=== PATIENT | female | born 1930 | race Caucasian/White ===

== ENCOUNTER → 2017-04-12 | Outpatient (CLI) | payer MEDICARE, OTHER, MEDICAID ==
[~2017-04-12] MED LIST: ADVAIR 250-501 EACH INH; ALDACTONE25 MG PO; CLARITIN10 MG PO; COLACE100 MG PO; COUMADIN ** 9/62 MG PO; COUMADIN **IA1 MG PO; DITROPAN5 MG PO; DULCOLAX10 MG R; DUONEB INH; FLOMAX0.4 MG PO; HYDROCODON-ACE1 EACH PO; K-TAB ER10 MEQ PO; LACTINEX (FLORA1 TAB PO; LASIX40 MG PO; LEVOTHROID (S100 MCG PO; MAG-OX-400(241400 MG PO; MILK OF MA400 MG/5 M PO; MUCINEX600 MG PO; OXYGEN M-15 INH; PLAQUENIL200 MG PO; REQUIP0.25 MG PO; TENORMIN50 MG PO; TYLENOL EXTRA500 MG PO; TYLENOL325 MG PO; ULTRAM50 MG PO; VITAMIN D-32000 UNI1 PO; ZAROXOLYN2.5 MG PO; ZYLOPRIM100 MG PO
[2017-04-12 09:23] LABS: BASOPHIL # 0.1 K/uL (0.0-0.2); BASOPHIL % 0.8 %; HEMATOCRIT 31.9 % (30.0-46.0); HEMOGLOBIN 10.2 g/dL (10.0-15.0); IMMATURE GRANULOCYTE # 0.1 K/uL (0.0-0.3); LYMPHOCYTE # 1.3 K/uL (0.8-4.0); LYMPHOCYTE % 16.3 %; MONOCYTE # 0.7 K/uL (0.0-1.0); MONOCYTE % 9.5 %; MPV 11.9 fl (9.4-12.4); NEUTROPHIL # (ANC) 5.6 K/uL (1.8-7.8); NEUTROPHIL % 72.4 %; NRBC % 0 /100WBC (0-0.00); PLATELET COUNT 318 K/uL (150-450); RBC 3.19 M/uL (3.00-5.00); RDW-CV 15.9 % (11.9-14.6); WBC 7.7 K/uL (4.0-11.0)
[2017-04-12 09:27] LABS: INR - (THERAPEUTIC) 1.62 (0.92-1.07); PROTIME 17.1 SECONDS (9.8-11.4)
[2017-04-12 09:32] LABS: ANION GAP 12.7 (10.0-19.0); CREATININE 2.1 mg/dL (0.5-1.1); POTASSIUM 4.7 mMol/L (3.7-5.1)
== END ==
PROVIDERS: Internal Medicine
DX: I48.91 Unspecified atrial fibrillation (principal); D64.9 Anemia, unspecified; N18.9 Chronic kidney disease, unspecified

== ENCOUNTER 2017-04-13 17:11 | Inpatient (IN) | payer MEDICARE, OTHER, MEDICAID ==
[~2017-04-13] VITALS: Ht 152.4 cm; Wt 64.1 kg
--- NOTE | ~2017-04-13 | OR ---
PATIENT'S NAME: [facility]ISA [facility] AGE: 86 Y [address] ROOM: [address] [address] LOCATION: GPCU ADMIT DATE: 04/13/2017 OR/Procedure Report DISCHARGE DATE: FAMILY PHYSICIAN: YOJANA ORDOÑEZ MD ATTENDING PHYSICIAN: RACHELL MOTTA SURGEON: Jonathon Galvez MD WILDLIFE ENFORCEMENT MAJOR: DATE OF PROCEDURE: 04/17/2017 ANESTHESIA: General endotracheal anesthesia. PROCEDURE PERFORMED: Laparoscopic cholecystectomy. COMPLICATIONS: None. SPECIMENS: Gallbladder and contents FINDINGS: 1. Chronic calculous cholecystitis 2. Micronodular cirrhosis COUNTS: The sponge and needle counts at the end of the case were correct. DESCRIPTION OF PROCEDURE: After informed consent was obtained, the patient was taken to the operating room and intubated. Her anterior abdominal wall was sterilely prepped and draped. A surgical time-out was performed. Local anesthetic was infiltrated just below the umbilicus in the midline dermis. A stab incision was used to allow passage of a Veress needle. Veress needle entered into the peritoneum on the first pass. A pneumoperitoneum was created. An 11 mm port was passed through this stab incision. Adhesions of omentum to the anterior abdominal wall were noted. A 5 mm subxiphoid port and two 5 mm right subcostal ports were placed under camera visualization. There was no ascites. The liver had an appearance of micronodular cirrhosis with interspersed areas of fibrosis. Adhesions of omentum to a thickened gallbladder were identified. This was consistent with the diagnosis of chronic cholecystitis. The adhesions of omentum were divided with a combination of blunt dissection and Harmonic scalpel. The gallbladder was retracted superiorly and laterally. Dissection within the triangle of Calot revealed the cystic artery and cystic duct. A top-down dissection of the gallbladder from the gallbladder fossa was performed in this patient with cryptogenic cirrhosis. Minor bleeding from the gallbladder fossa was seen. The cystic artery was divided with the Harmonic scalpel. The gallbladder was freed from the gallbladder fossa and suspended only by the cystic duct. Endoloops x2 were used around the cystic duct. The gallbladder was divided at its neck and extracted through an EndoCatch bag via the 11 mm port. Irrigation of the right upper quadrant proceeded. There was no leakage of bile. There was no evidence of ongoing bleeding. Ports were removed under camera visualization. The fascia of the 11 mm umbilical port was closed with 0 Vicryl. 4-0 Monocryl and Dermabond were used for all skin incisions. The patient was extubated in the operating room and taken to the recovery room in stable condition. PATIENT'S NAME: [facility] AGE: 86 Y [address] ROOM: [place] [address] LOCATION: GPCU ADMIT DATE: 04/13/2017 OR/Procedure Report DISCHARGE DATE: FAMILY PHYSICIAN: YOJANA ORDOÑEZ MD ATTENDING PHYSICIAN: RACHELL MOTTA JONATHON GALVEZ MD CM/marely /[id number] d: 04/17/17 1359 t: 04/17/17 2211, OPERATIVE SUMMARY
--- NOTE | ~2017-04-13 | HP ---
PATIENT'S NAME: LUISA WRIGHT [facility] AGE: 86 Y [address] ROOM: [place] [address] LOCATION: GPCU ADMIT DATE: 04/13/2017 History & Physical DISCHARGE DATE: FAMILY PHYSICIAN: YOJANA ORDOÑEZ MD ATTENDING PHYSICIAN: RACHELL MOTTA DATE OF SERVICE: CHIEF COMPLAINT: Abdominal pain. HISTORY OF PRESENT ILLNESS: An 86-year-old lady with a past medical history of atrial fibrillation, on oral anticoagulation with Coumadin, hypothyroidism, COPD, and peripheral vascular disease who suffered a fall about 3 weeks ago, ground level, fracturing her right humerus, oblique complete fracture, treated conservatively with a cast by Dr. Arndt. She was at nursing facility, recovering well, until couple of days when she developed generalized pain, but more importantly she developed abdominal pain, which she described to me as crampy in nature, located in the right upper quadrant, it comes and goes, associated with decrease in appetite, cold episode, but no shaking or fever. Not associated with any constipation, diarrhea, burning on urination, nausea or vomiting. She on my encounter, denied any chest pain, but daughters did endorse that she was complaining of chest pain from the fall as well. She also endorsed having more cough production in recent days, but more or less no shortness of breath. Further inquiry did not reveal any leg swelling, any dizziness, any headache, any trouble swallowing, but did endorse having extreme thirst. REVIEW OF SYSTEMS: All other systems reviewed were negative except what is mentioned in the HPI. ALLERGIES: THE PATIENT IS ALLERGIC TO PENICILLIN, TYLENOL, WELL HYDROCODONE WELL TETANUS SHOT. PAST MEDICAL HISTORY: Paroxysmal atrial fibrillation, on home long-term anticoagulation, hypothyroidism, COPD, and peripheral vascular disease. MEDICATIONS: Being reconciled right now. SOCIAL HISTORY: Lifelong current smoker. PATIENT'S NAME: LUISA WRIGHT [facility] AGE: 86 Y [address] ROOM: [place] [address] LOCATION: GPCU ADMIT DATE: 04/13/2017 History & Physical DISCHARGE DATE: FAMILY PHYSICIAN: YOJANA ORDOÑEZ MD ATTENDING PHYSICIAN: KHALID,LOVETT A FAMILY HISTORY: Reviewed and was unrelated to the current events. PHYSICAL EXAMINATION: VITAL SIGNS: Blood pressure on presentation was 166/66, afebrile, 52, satting 95% on 1 L of oxygen, and respiratory rate 16. GENERAL: No acute distress. Alert and oriented x3. HEENT: Head: Atraumatic, normocephalic. Eyes: Positive pallor, positive icterus. Oropharynx: Very dry mucous membranes. CARDIOVASCULAR: Variable S1, normal S2, bradycardia. No murmurs, gallops, or rubs. LUNGS: Bilateral scattered crackles. No expiratory wheezes heard. ABDOMEN: Soft, tender in the right upper quadrant. No rebound tenderness or Chowdhury sign noted. Bowel sounds are present. EXTREMITIES: No clubbing or cyanosis, but extensive bruising from the recent fall noted. Right upper extremity is in the cast right now. MUSCULOSKELETAL: No muscle tenderness noted, but multiple pain all over the body reported. NEUROLOGIC: Cranial nerves 2 through 12 intact. No motor or sensory deficits. PSYCH: Normal affect, mood, and speech. ENDOCRINE: No thyromegaly or myxedema noted. SKIN: As mentioned above, multiple bruises extensive noted in the extremities, no blemishes. LABORATORY DATA: Lab work done today in the emergency department showed 2 set of troponins, which were negative. CBC was unremarkable. BMP was impressive for BUN of 75, creatinine of 2.2, sodium 136, potassium 4.0, chloride 97, bicarb 28, calcium 8.4, alkaline phosphatase was very impressive at 1305. Given undergoing the recent trauma, but ALT and AST are also elevated at 86 and 133 respectively. Bilirubin is elevated at 2.4, mag is 3.7, INR is 2.2. Urinalysis is suggestive of acute cystitis. Procalcitonin 0.62. CT scan of the abdomen, pelvis, and chest was done with the following findings. Acute oblique fracture of the right proximal humerus, extensive vascular calcification of the aorta, also imaging is suggestive of aspiration or presence of inspissated secretion on the right-side. Right lung dense consolidation at the right infrahilar region and both bases consistent with dense infiltrate and atelectasis. No free air or fluid identified in the abdomen. Right renal cyst there is a 3-cm cystic mass at the left-side of the pelvis, which could reflect mass of ovarian origin. It also showed cholelithiasis, but there was no comments on the CBD or CBD dilatation. No comments on the pancreas are also found in the CT report. PATIENT'S NAME: LUISA WRIGHT [facility] AGE: 86 Y [address] ROOM: [address] [place], [place] [address] [facility] ADMIT DATE: 04/13/2017 History & Physical DISCHARGE DATE: FAMILY PHYSICIAN: YOJANA ORDOÑEZ MD ATTENDING PHYSICIAN: RACHELL MOTTA ASSESSMENT: 1. Biliary obstruction, likely choledocholithiasis. 2. Atrial fibrillation with slow ventricular rates on long-term anticoagulation. 3. Elevated liver enzymes. 4. Acute kidney insufficiency on chronic kidney disease stage 3, ovarian mass/cyst. 5. Chronic obstructive pulmonary disease. 6. Pneumonia, likely healthcare-associated. 7. Recent fall. 8. Acute cystitis. PLAN: We are going to admit this lady and start her on intravenous fluids given that she is very dry on the physical exam and the kidney function also reflects the same. Continue her antibiotics for biliary obstruction as well as pneumonia, start her on meropenem and Levaquin, I will hold vancomycin at this point, we will get a sputum culture, blood culture, as well as urine Legionella or streptococcal antigen. We will monitor. We are going to get ultrasonography of the right upper quadrant as it is more sensitive to pickup any CBD dilatation or stones. GI consultation will be obtained in the morning until then pain control will be provided. DuoNeb treatment for her COPD. Hold anticoagulation at this point. SCDs. N.p.o. midnight for possible GI procedure in the morning. The patient is DNR/DNI. I spent 1 hour in providing direct care to this patient including history and physical, explaining to the current nature of the disease processes, management, and prognosis. MD MARIAJOSE ROJAS/marely /[id number] D: T: HISTORY & PHYSICAL
--- NOTE | ~2017-04-13 | ER ---
PATIENT'S NAME: LUISA WRIGHT [facility] AGE: 86 Y [address] ROOM: [address] [place], [place] [address] LOCATION: GPCU ADMIT DATE: 04/13/2017 ER/Outpatient Report DISCHARGE DATE: FAMILY PHYSICIAN: YOJANA ORDOÑEZ MD ATTENDING PHYSICIAN: RACHELL MOTTA HISTORY OF PRESENT ILLNESS: This patient is an 86-year-old female, who comes in with abdominal pain, chest pain over the past 3 days. The patient had a ground level fall about a week ago with fractured right humerus and multiple lacerations, contusions, soft tissue injuries. She has been in [facility] recuperating from her fall over the past week. The pain has been there for the past 3 days. The patient initially saw Dr. Tovar on admission here to the emergency department. See Dr. Tovar's dictation in regard to the chief complaint, history of present illness, past medical history, physical exam, and laboratory studies. Dr. Tovar asked to transfer the patient's care over to me at shift change and asked me to follow up with the patient's CT scan results of the thoracic spine, lumbosacral spine, chest, abdomen, and pelvis. CT scans were done without contrast because of her chronic kidney disease. She had CT scan of the facial bones, head and C-spine that were all negative on 03/25. These were not redone. CT scan of the thoracic spine showed an old compression fracture T11 and some kyphosis along with degenerative changes. CT scan of the lumbosacral spine showed degenerative changes, spinal stenosis at L4-L5. No acute fractures. CT scan of the chest without contrast showed bilateral lower lobe consolidation and bilateral upper lobe consolidation consistent with aspiration pneumonia. CT scan of the abdomen and pelvis showed diffuse vascular calcifications. No free air or free fluid. Did have some gallstones, right kidney cyst 3 cm, left pelvic cyst. All CT scans read by Radiology. See dictated transcribed report. The patient is known to have a right humeral fracture from a previous fall about a week ago. We did draw two blood cultures. Her urine came back positive with 20 to 50 wbc's, 2 to 5 rbc's, 2 to 5 epithelial cells, many bacteria, 1+ amorphous material, few white blood cell clumps, positive nitrites on dipstick. The patient's EKG showed no acute ST elevation, ischemic change, or arrhythmia. Her CPK and cardiac enzymes were normal. Lactate was normal at 1.2. Procalcitonin was elevated at 0.62. CMS was normal except for a slight low calcium of 8.4, elevated BUN of 75, elevated creatinine of 2.2, and low GFR of 20. Liver enzymes were elevated with a total bilirubin at 2.4, alkaline phosphatase of 1305, AST 133, and ALT of 86. ProBNP was elevated 2380. White count was normal at 8500, 78 segs, 10 lymphs, 9 monos, and 1 baso. Hemoglobin was 10.3 with hematocrit 33.0 and platelet count is 273,000. EMERGENCY DEPARTMENT COURSE: I did give the patient 1 L normal saline and put it at 100 mL an hour. She is on oxygen per nasal cannula 1 to 2 L/minute. She is not having any altered PATIENT'S NAME: LUISA WRIGHT [facility] AGE: 86 Y [address] ROOM: [address] [address] [facility] AD[facility] DATE: 04/13/2017 ER/Outpatient Report DISCHARGE DATE: FAMILY PHYSICIAN: YOJANA ORDOÑEZ MD ATTENDING PHYSICIAN: RACHELL MOTTA mental status. She does have a new infection involving her urine and her pneumonia. She is not tachycardic or tachypneic. Does not have an elevated white count or below normal white count. She is not hyper or hypothermic. Her vital signs have been stable. Awaiting blood cultures and urine cultures. We will start her on IV Levaquin 750 mg here in the emergency department. IMPRESSION: 1. Aspiration pneumonia with cough and chest pain. 2. Urinary tract infection with abdominal pain, nausea, and dry heaves. 3. Elevated liver enzymes, etiology uncertain. She does have known gallstones. 4. Chronic kidney disease with elevated BUN and creatinine and low GFR. 5. Hypothyroidism. 6. Dyslipidemia. 7. Tobacco abuse. 8. Chronic obstructive pulmonary disease. 9. Hypertension. 10. Degenerative joint disease with degenerative osteoarthritis, status post total hip arthroplasty. PLAN: Discussed the patient with Dr. Anton. We will admit the patient to PCU telemetry. Did start the patient on IV normal saline, fluids, and IV Levaquin. She will be admitted for further evaluation and treatment per hospitalist. Discuss ensued with the family and the patient regarding my findings and recommendations, they understand. MD TOÑO ALEGRIA/esperanzal /[id number] d: 04/13/172 t: 04/14/17 1813, OUTPATIENT REPORT
--- NOTE | ~2017-04-13 | DS ---
PATIENT'S NAME: LUISA WRIGHT [facility] AGE: 86 Y [address] ROOM: [id number] [place], [place] [address] [place]ATION[place] [facility] [place] AD[place] DATE: 04/13/2017 Discharge Summary DISCHARGE DATE: 04/21/2017 FAMILY PHYSICIAN: Chandler Green MD ATTENDING PHYSICIAN: Tess Plummer PRINCIPAL DIAGNOSES: 1. Choledocholithiasis with chronic cholecystitis. 2. Healthcare-acquired pneumonia, MSSA. 3. Urinary tract infection, Escherichia coli and Pseudomonas. 4. Tumjh-eq-tffbmmv respiratory failure with underlying chronic obstructive pulmonary disease. 5. Urinary retention with Rosas catheter placement. 6. Evztd-fm-csycdhp kidney disease, stage 3. 7. Paroxysmal atrial fibrillation, on long-term anticoagulation, Coumadin. 8. Chronic diastolic congestive heart failure. 9. Essential hypertension. 10. Rodbavji-ro-euiyhr protein-calorie malnutrition. 11. Pwexreli-ve-gfnyug deconditioning. 12. Rheumatoid arthritis. 13. History of recent right humerus fracture. 14. Chronic tobaccoism, smoker. HOSPITAL COURSE: Please reference any of the admitting data to the history and physical as dictated by Dr. Plummer. Briefly, an 86-year-old female, who presented to the hospital with complaints of abdominal pain. Evaluation found a CT scan with concerns of biliary obstruction. She was further admitted for evaluation. She did have elevated liver functions with a total bilirubin of 2.4, alkaline phosphatase of 1305, ALT of 86, and AST 133. She also presented with a bump in her creatinine of 2.8 and BUN of 76. She also had a mild elevation in her white count of 13,000. Her urinalysis was positive for cystitis. She was started on meropenem and Levaquin. A Gastroenterology consultation was obtained. She was given supportive cares with IV fluids, antiemetics, and pain medicine. Further investigation by right upper quadrant ultrasound showed suspected acute cholecystitis with a dilated common bile duct with no definite intraductal filling defect. As we allowed the Coumadin to be reversed, we did have to utilize FFP. She underwent an ERCP where a stent was placed and sludge and stones were swept. A Surgical consultation was obtained while INR was reversed. She underwent a laparoscopic cholecystectomy then on 04/17. Also upon her initial presentation, she did have a mild increase in her oxygen demands from her baseline 1 L of oxygen to 3 to 4 L of oxygen. It was noted PATIENT'S NAME: LUISA WRIGHT [facility] AGE: 86 Y [address] ROOM: [address] [place], [place] [address] LOCATION: [facility] [place] DATE: 04/13/2017 Discharge Summary DISCHARGE DATE: 04/21/2017 FAMILY PHYSICIAN: Chandler Green MD ATTENDING PHYSICIAN: Tess Plummer that she did have a positive patchy area of concern for infiltrate on CT of her chest. Sputum culture did show MSSA, so antibiotics were transitioned appropriately. Her urine culture grew out gram-negative rods, eventually grew out E. coli and Pseudomonas, and eventually antibiotics were narrowed from vancomycin and meropenem down to oral Levaquin renally dosed for recommended 14 total days. With aggressive pulmonary toileting and treatment of her pneumonia and mucolytic, she did make progress back down to her baseline 1 L oxygen requirement. She was mobilizing with physical and occupational therapy. She was recovering well from her laparoscopic cholecystectomy and trending down towards normal function. Creatinine had improved back to her baseline down to 1.2. The patient had a recent fall with a right humerus fracture. We maintained her orthopedic restrictions and brace. Therapies were evaluating and treating the patient while hospitalized. Post-laparoscopic cholecystectomy, we were able to resume her Coumadin, and she was placed on DVT prophylaxis until her INR was greater than 2, which was on the day of discharge. She had no bleeding complications noted. Her diuretics were held in lieu of the acute kidney injury. She was hydrated appropriately. On the day of discharge, she was returned to her previous diuretic dosing. Further cardiac evaluation as an outpatient is warranted. Remaining of the patient's chronic conditions were maintained or monitored during her stay. By the day of discharge, she was felt stable and in good condition to return to [facility] for further recovery. PERTINENT LABORATORY FINDINGS: As described above with most recent being a CBC on 04/20 showed a white blood cell count of 10.5, hemoglobin of 8.2, hematocrit of 25.2, and a platelet count of 257. A chemistry panel most recently on 04/20 showed a glucose of 62; a BUN of 41; a creatinine of 1.2, down from 2.8; a sodium of 131; a potassium of 3.8; a chloride of 95; a CO2 of 29; calcium 8.2, and anion gap 10.8. Liver functions showed initial AST of 133; ALT of 86; alkaline phosphatase of 1305; and a total bilirubin of 2.4, this trended to 4.5 and post-laparoscopic cholecystectomy was 1.7. INR on the day of discharge was 2.86. Urinalysis showed yellow 1+ turbid urine with specific gravity 1.010 with 500 PATIENT'S NAME: LUISA WRIGHT [facility] AGE: 86 Y [address] ROOM: [facility] [place] [address] LOCATION: [facility] [place] ADMIT DATE: 04/13/2017 Discharge Summary DISCHARGE DATE: 04/21/2017 FAMILY PHYSICIAN: Chandler Green MD ATTENDING PHYSICIAN: Tess Plummer leukocytes and positive nitrites, many bacteria, and microscopic blood and leukocytes. A culture of that urine showed Pseudomonas and E. coli. Procalcitonin upon arrival was 0.62. Lipase was negative at 85. MICROBIOLOGY DATA: Showed a sputum culture with Staphylococcus aureus, methicillin sensitive. Blood cultures obtained were negative. RADIOLOGIC IMAGING: Initial imaging on April 13 showed a chest x-ray with the known proximal right humerus fracture with multiple areas of patchy parenchymal opacity in both lungs, greater than the right compared to the left with low lung volumes. So, a CT of the chest, abdomen, and pelvis was obtained showing impression of acute oblique fracture of the right proximal humerus, which is known. Extensive vascular calcifications with an ectatic aorta. There was intermediate attenuation material in the lobar, segmental, and subsegmental bronchi at the lower lobes, concern for secretions. There was also an area of dense lung consolidation in the right infrahilar area in both bases consistent with dense infiltrate and atelectasis. There were also patchy areas of parenchymal opacity on the anterior aspect of the right upper lobe and left lower lobe reflecting probable atelectasis or infiltrate. There was cholelithiasis noted and no findings of bowel obstruction. She also had a CT of the lumbar spine, which showed no acute bone fractures. CT scan of her thoracic spine showed mild central compression deformity at the superior endplate of T11, probable chronic. No other acute changes. Right upper quadrant ultrasound showed suspected acute cholecystitis with dilated common bile duct, but no definite intraductal filling defect. There was also known right renal cyst with mildly atrophic appearing right kidney. DISCHARGE MEDICATIONS: 1. Tylenol Extra Strength 500 mg p.o. 4 times daily. 2. Allopurinol 200 mg p.o. every day. 3. Atenolol 50 mg p.o. twice daily. 4. Colace 100 mg p.o. twice daily. 5. Coumadin 2 mg p.o. 3 times a week on Tuesday, Tuesday, and Tuesday. 6. Coumadin 1 mg p.o. 4 times a week on Tuesday, Tuesday, , and Tuesday. Primary care provider to titrate to goal INR of 2.0 to 3.0. 7. Humibid or Mucinex 1200 mg p.o. twice daily for 7 days. 8. Plaquenil 200 mg p.o. twice daily. 9. Lactobacillus 4 tablets p.o. 4 times daily. 10. Levaquin 750 mg p.o. every 48 hours for 4 more doses. PATIENT'S NAME: LUISA WRIGHT [facility] AGE: 86 Y [address] ROOM: [place] [address] LOCATION: [facility] [place] ADMIT DATE: 04/13/2017 Discharge Summary DISCHARGE DATE: 04/21/2017 FAMILY PHYSICIAN: Chandler Green MD ATTENDING PHYSICIAN: Tess Plummer 11. Levothyroxine 100 mcg p.o. every day before breakfast. 12. Claritin 10 mg p.o. every day before breakfast. 13. Magnesium oxide 400 mg p.o. twice daily. 14. Metolazone 2.5 mg p.o. every day. 15. Lasix 40 mg p.o. twice daily. 16. Aldactone 12.5 mg p.o. daily. 17. Flomax 0.4 mg p.o. every evening at 1900 hours. 18. Ipratropium and albuterol nebulizer treatment 1 inhalation every 8 hours for another 14 days. 19. Advair 250/50 one puff inhalation twice daily. 20. Dulcolax 10 mg per rectum as needed for constipation. 21. Milk of magnesia 30 mL p.o. daily as needed for constipation. 22. Potassium chloride 20 mEq p.o. 4 times daily. 23. Ultram, changed to 50 to 100 mg p.o. every 12 hours as needed. 24. Requip 0.25 mg p.o. every night at bedtime. 25. Oxybutynin 5 mg p.o. every day. 26. Vitamin D3, 2000 units p.o. every day. 27. Requip 0.25 mg p.o. 3 times daily as needed for restless legs. 28. Albuterol nebulizer every 2 hours as needed for shortness of breath or wheezing. DISCHARGE INSTRUCTIONS: The patient will be discharged to [place] by transport van. Diet will be regular soft diet, to include a calorie count by Dietary to ensure the patient is meeting sufficient dietary needs. House supplement as needed. Activity as tolerated and right humerus fracture restrictions as per orthopedist with continuation of the right upper extremity brace and sling. She will require multiple followups to include a followup with her primary care provider, Dr. Green in 1 week, with continued followup of labs of PT/INR, most recent on 04/22, to be faxed to his office and to manage Coumadin to goal INR of 2.0 to 3.0. A CBC and BMP are recommended at followup date with Dr. Green in 1 week. She will also require a followup with Dr. Gaviria with stent removal in 3 weeks. Orders to follow and to be scheduled an endoscopy with n.p.o. the night prior to. Coumadin to be held as per primary care provider 5 days prior to the ERCP and a PT/INR to be drawn on the morning of the ERCP. She will also require followup with Dr. Ferrer in 1 to 2 weeks for postop laparoscopic cholecystectomy evaluation. Laparoscopic cholecystectomy instructions were sent with the patient for caring and monitoring of the PATIENT'S NAME: LUISA WRIGHT [facility] AGE: 86 Y [address] ROOM: [address] [place] [id number] LOCATION: [facility] [place] ADMIT DATE: 04/13/2017 Discharge Summary DISCHARGE DATE: 04/21/2017 FAMILY PHYSICIAN: Chandler Green MD ATTENDING PHYSICIAN: Tess Plummer. She will also require followup with Urology in 4 weeks. The patient did have a void trial without any success. A Urology consultation with Dr. Gasca ensued, who evaluated the patient to require the Rosas catheter. We will leave it in place for current time and they may change the catheter every month per their policy. We do recommend a followup in 4 weeks to further evaluate, need for long-term catheter and possible urodynamic studies. The patient is planning to see [facility] provider regarding her humerus fracture, currently nonoperative stay with a sling and brace management, physical therapy and occupational therapy to continue. This is as per Dr. Green. The patient should warrant a Cardiology followup, and when I spoke to Dr. Green, he was planning on having Dr. Soto evaluate the patient. The patient was on a heavy dose of diuretics, most recently cut back, and was also in acute kidney injury when she came. This will need to be observed closely. The patient may warrant further investigation of her cardiac history. Her rehab potential is fair and discharge potential is fair. The above line information was discussed with the patient. I did discuss her hospital course with Dr. Green. Total time arranging discharge planning and coordination was greater than 35 minutes. Thank you for allowing us to participate in the care of this patient while at [facility]. WEST MARTIN APRN, APRN FOR MD ESTEPHANIE HOPPER/marely /[id number] CC: MD Chandler Pisano MD Brady J O'Hare, MD d: 04/22/17 0523 t: 04/23/17 1726, DISCHARGE SUMMARY
--- NOTE | ~2017-04-13 | CON ---
PATIENT'S NAME: LUISA WRIGHT [facility] AGE: 86 Y [address] ROOM: [address] [place], [place] [address] LOCATION: [facility]PCU ADMIT DATE: 04/13/2017 Consultation DISCHARGE DATE: FAMILY PHYSICIAN: YOJANA ORDOÑEZ MD ATTENDING PHYSICIAN: RACHELL MOTTA DATE OF CONSULTATION: 04/14/2017 REFERRING PHYSICIAN: EMILIE HARRELL MD REASON FOR CONSULTATION: Elevated liver function tests and abdominal pain. HISTORY OF PRESENT ILLNESS: This is a very pleasant 86-year-old female with a past medical history significant for atrial fibrillation, on Coumadin, hypothyroidism, COPD, and peripheral vascular disease. The patient suffered a fall approximately 3 weeks ago resulting in a fracture of her right humerus with oblique complete fracture treated conservatively with a cast. The patient has currently been residing at a snf and recovering well until a few days ago when she developed generalized abdominal pain as well as right upper quadrant pain with radiation into the back. She did have associated decrease in appetite as well as a cold episode, but denied any steven fever or shaking chills. The patient denies any problems with her bowels or change in her bowel habits. She also denies any chest pain, chest pressure, or shortness of breath. Her family does endorse a cough production in the past few days without any shortness of breath. On evaluation at [facility], the patient did undergo a CT abdomen and pelvis showing cholelithiasis as well as pneumonia. No mention was made of the patient common bile duct and/or possible choledocholithiasis. On examination of laboratory, the patient was found to have elevated liver function tests with an AST of 133, now 392, ALT was 86, now 176, alk phos was 1305, now 1327, with a total bilirubin at 2.4, now 2.9. The patient was seen and examined. She states that her abdominal pain is slightly better. She continues to have some intermittent back pain. Denies any fever or shaking chills. The patient denies any acute chest pain, chest pressure, shortness of breath, fever, or chills at this time. PAST MEDICAL HISTORY: Atrial fibrillation, on long-term anticoagulation being Coumadin, INR this morning was 2.6, hypothyroidism, COPD, and peripheral vascular disease. PAST SOCIAL HISTORY: Lifelong current smoker. Denies any alcohol or tobacco issues. FAMILY HISTORY: PATIENT'S NAME: LUISA WRIGHT [facility] AGE: 86 Y [address] ROOM: [address] [place], [place] [address] LOCATION: GPCU ADMIT DATE: 04/13/2017 Consultation DISCHARGE DATE: FAMILY PHYSICIAN: YOJANA ORDOÑEZ MD ATTENDING PHYSICIAN: RACHELL MOTTA The patient denies any known gastrointestinal diseases to her knowledge. ALLERGIES: PENICILLINS, CODEINE, TYLENOL, IBUPROFEN, NAPROXEN, TETANUS, CARDIZEM, AND PENICILLIN. CURRENT MEDICATIONS: Please refer to the medication administration record. REVIEW OF SYSTEMS: All point review of systems was completed. All were negative except for those identified in the history of present illness. PHYSICAL EXAMINATION: GENERAL: A very pleasant 86-year-old female, lying in bed, who appears to be in no acute distress. VITAL SIGNS: Temperature 97.5, pulse of 86, respirations of 24, blood pressure 144/62, and oxygen saturations 97% on 1 L nasal cannula. SKIN: [place], warm, dry. No jaundice. HEENT: Head is normocephalic and atraumatic. Pupils equal, round, and reactive to light. Sclerae are clear. Nonicteric. Oral mucosa is pink and moist. No thyromegaly. NECK: Soft and supple. CARDIOVASCULAR: Regularly irregular. RESPIRATIONS: Even and nonlabored. LUNGS: Clear to auscultation. ABDOMEN: Soft, round, mildly tender with deep palpation to the right upper quadrant. No rebound, rigidity, or guarding noted. Bowel sounds are positive. MUSCULOSKELETAL: No muscle weakness or atrophy noted. Right humerus fracture currently casted. EXTREMITIES: No edema. NEUROLOGIC: Grossly nonfocal. LABS AND DIAGNOSTICS: Lactate on admission was 1.2. White blood cell count 7.1, hemoglobin 9.1, hematocrit of 28.8, MCV of 99.7, and platelets of 255. Chemistry panel includes a glucose of 79, BUN of 69, and creatinine of 2.0. Sodium 137, potassium 3.4, chloride of 99, CO2 of 31, albumin of 2.0, AST 133, now 392, ALT was 86, now 176, alk phos was 1305, now 1327, total bilirubin at 2.4, now 2.9. Pro-time 28.2. INR is 2.66. Lipase 85. GGT was elevated at 456. CT abdomen and pelvis and chest was completed on admission. This showed acute oblique fracture of the proximal right humerus. Extensive vascular calcifications with ectatic aorta, intermediate attention material in the lobar, segmental, and subsegmental bronchi of the lower lobes, appearance PATIENT'S NAME: LUISA WRIGHT [facility] AGE: 86 Y [address] ROOM: [id number] [place] [id number] LOCATION: GPCU ADMIT DATE: 04/13/2017 Consultation DISCHARGE DATE: FAMILY PHYSICIAN: YOJANA ORDOÑEZ MD ATTENDING PHYSICIAN: RACHELL MOTTA A could reflect aspiration or pressure of inspissated secretions, areas of dense lung consolidation at the right infrahilar area in both bases, consistent with dense infiltrate and atelectasis. Patchy areas of parenchymal opacity in the anterior aspect of the right lower lobe and left upper lobe likely reflecting contusion, atelectasis versus infiltrates, no free air or free fluid identified at the abdomen or pelvis. Cholelithiasis, right renal cyst, no finding of bowel obstruction. A 3-mm cystic mass of the left-side of the pelvis which could reflect mass of ovarian origin. No mention was made of common bile duct or choledocholithiasis. Current abdominal ultrasound is pending at this time. ASSESSMENT AND PLAN: Again this is a very pleasant 86-year-old female with past medical history of atrial fibrillation, on long-term anticoagulation being Coumadin, chronic obstructive pulmonary disease, and peripheral vascular disease. The patient recently suffered a fall approximately 3 weeks ago resulting in a right humerus oblique fracture that cast has been placed. Over the past few days, the patient developed increasing abdominal pain in the right upper quadrant that she describes as cramping in nature with some radiation to the back. On admission, she was found to have abnormal liver function tests with elevated total bilirubin at 2.9 at this time. At this point, we will wait for abdominal ultrasound to be completed for further evaluation of the patient's common bile duct ruling out choledocholithiasis or dilation. The patient currently is on Levaquin and meropenem as this should be continued. The patient also was found to have pneumonia likely healthcare-associated as this is being managed per our hospitalist. If abdominal ultrasound is positive for choledocholithiasis, the patient likely will need to go undergo an ERCP after correction of the patient's INR as the patient's INR this morning was 2.66. This is discussed and reviewed with the patient. As long as the patient remains asymptomatic for cholangitis, we will await for the abdominal ultrasound as well as correction of INR. Thank you for this consult. MONICA FARFAN APRN FOR MD SEBASTIAN MATHEWS/modl /[id number] d: 04/14/17850 t: 04/18/17 1908, CONSULTATION REPORT
--- NOTE | ~2017-04-13 | CON ---
PATIENT'S NAME: LUISA WRIGHT [facility] AGE: 86 Y [address] ROOM: [place] [address] LOCATION: GPCU ADMIT DATE: 04/13/2017 Consultation DISCHARGE DATE: FAMILY PHYSICIAN: YOJANA ORDOÑEZ MD ATTENDING PHYSICIAN: RACHELL MOTTA DATE OF CONSULTATION: 04/16/2017 REFERRING PHYSICIAN: EMILIE HARRELL MD INPATIENT CONSULTATION NOTE REASON FOR CONSULTATION: The consultation is for a laparoscopic cholecystectomy. CHIEF COMPLAINT: Abdominal pain x1 week. HISTORY OF PRESENT ILLNESS: In brief, this is an 86-year-old female, who was admitted to the hospital two days ago with a 1-week history of intermittent right upper quadrant pain without specific association to meals. Pain is crampy in nature. She denied at that time acholic stools or jaundice. Of note, in her history, she sustained a fall while on Coumadin for her atrial fibrillation approximately three weeks prio, at which time she sustained a right humerus fracture which was treated nonoperatively. PAST MEDICAL HISTORY: Significant for: 1. Atrial fibrillation, on Coumadin. 2. COPD. 3. Peripheral vascular disease. 4. Hypothyroidism. PAST SURGICAL HISTORY: Includes: 1. Open appendectomy. 2. x5. 3. Multiple bilateral hip surgeries. MEDICATIONS: Reviewed. Of note, patient is on antibiotics for suspected UTI on admission. ALLERGIES: HER ALLERGIES ARE MULTIPLE AND INCLUDE PENICILLIN, TYLENOL, HYDROCODONE, AND THE TETANUS SHOT. PATIENT'S NAME: LUISA WRIGHT [facility] AGE: 86 Y [address] ROOM: [place] [address] LOCATION: GPCU ADMIT DATE: 04/13/2017 Consultation DISCHARGE DATE: FAMILY PHYSICIAN: YOJANA ORDOÑEZ MD ATTENDING PHYSICIAN: RACHELL MOTTA SOCIAL HISTORY: Positive for tobacco use. PHYSICAL EXAMINATION: VITAL SIGNS: She is afebrile with normal vital signs. GENERAL: She is surprisingly vibrant and alert. HEENT: She is anicteric. Oropharynx is normal. NECK: Supple. CARDIAC: Normal. PULMONARY: Normal. ABDOMEN: Mildly protuberant. There is minimal tenderness in the right upper quadrant to deep palpation. There are no palpable masses. There is no organomegaly. There is no jaundice. She has a well-healed Pfannenstiel and infraumbilical midline incisions consistent with her surgical history. EXTREMITIES: Her right arm is in a sling. SKIN: She has bruising and ecchymoses to the bilateral arms and face. LABORATORY DATA AND IMAGING STUDIES: On presentation to the hospital on the 12 of April, her white count was normal at 7.7, her hemoglobin was 10.2, and her platelet count was normal. Her white count has remained normal this admission most recently at 5.6. Her basic metabolic panel reveals a creatinine of 2.1 on admission, dropping to 1.6 this morning. She does have a baseline from 04 April that was 1.4, consistent with her diagnosis of mild chronic renal insufficiency. Her liver function tests revealed an AST and ALT of 133 and 86 on admission, and currently 324 and 183 as of yesterday. Her alkaline phosphatase has been in the 1300 to 1400 range. Her total bilirubin was 2.4 on admission, rising to 4.5, yesterday morning prior to her ERCP. Her INR on admission was 1.6 and her INR this morning with Coumadin held was 1.08. Her urinalysis on admission showed many bacteria, and she was nitrite positive and leukocytes positive. A right upper quadrant ultrasound showed a positive sonographic Chowdhury sign with a thickened gallbladder wall without pericholecystic fluid. Positive gallstones. Her common bile duct at that time was measured to be 1.4 cm. An ERCP was performed yesterday afternoon with extraction of multiple small stones, and sphincterotomy was performed. Stent placement followed. IMPRESSION AND PLAN: 1. Choledocholithiasis. 2. Urinary tract infection. 3. Paroxysmal atrial fibrillation with chronic anticoagulation. 4. Chronic renal insufficiency. I discussed the diagnoses and pathophysiology with the patient in layman's terms and discussed that this source of her pain in the right upper quadrant was most likely secondary to these stones that originated in the gallbladder PATIENT'S NAME: LUISA WRIGHT [facility] AGE: 86 Y [address] ROOM: [id number] [place], [place] [address] LOCATION: GPCU ADMIT DATE: 04/13/2017 Consultation DISCHARGE DATE: FAMILY PHYSICIAN: YOJANA ORDOÑEZ MD ATTENDING PHYSICIAN: RACHELL MOTTA and blocked her bile duct. I discussed some of the risks and benefits of surgery and nonoperative management. The patient understands that given her age and comorbidities, she is at higher risk of perioperative complications to include but not limited to, deep venous thrombosis, stroke, and . The patient understands the risks, benefits, indications, and alternatives as described and agrees to proceed with a laparoscopic cholecystectomy. I will arrange the timing of this procedure. CARLOS LOZANO MD CM/marely /[id number] d: 04/16/[id number] t: 04/17/17 0840, CONSULTATION REPORT
--- NOTE | ~2017-04-13 | ER ---
PATIENT'S NAME: LUISA WRIGHT [facility] AGE: 86 Y [address] ROOM: [place] [address] LOCATION: GPCU ADMIT DATE: 04/13/2017 ER/Outpatient Report DISCHARGE DATE: FAMILY PHYSICIAN: YOJANA ORDOÑEZ MD ATTENDING PHYSICIAN: RACHELL MOTTA Time of Arrival: 1711 hours Time of Evaluation: 1713 hours CHIEF COMPLAINT: Back pain. HISTORY OF PRESENT ILLNESS: The patient is an 86-year-old female, who presents to the emergency department today with a chief complaint of back pain. She reports this started 7 days prior to arrival. The patient does have a history of a fall about 3 weeks ago. She is recovering from a fracture of her right humerus at the nursing facility and these symptoms are progressively worsening over the past couple of days. She reports the pain is in right upper quadrant, it comes and goes. It is a sharp type pain. It is mild in severity. The patient does report some chest pain as well occasionally as well as some shortness of breath. Denies any diarrhea or constipation. PAST MEDICAL HISTORY: Paroxysmal atrial fibrillation, on Coumadin; hypothyroidism; COPD; peripheral vascular disease. PAST SURGICAL HISTORY: Carotid, ORIF, x5, hysterectomy, appendectomy. SOCIAL HISTORY: The patient smokes a pack per day for 54 years. Drinks alcohol rarely. Denies any illicit drug use. ALLERGIES: TO PENICILLIN, TYLENOL, HYDROCODONE, TETANUS. MEDICATIONS: Please see list. PRIMARY CARE DOCTOR: Dr. Ordoñez. REVIEW OF SYSTEMS: All systems are reviewed by myself and are negative with the exception of PATIENT'S NAME: LUISA WRIGHT [facility] AGE: 86 Y [address] ROOM: [place] [address] LOCATION: GPCU ADMIT DATE: 04/13/2017 ER/Outpatient Report DISCHARGE DATE: FAMILY PHYSICIAN: YOJANA ORDOÑEZ MD ATTENDING PHYSICIAN: RACHELL MOTTA those discussed in HPI and past medical history. PHYSICAL EXAMINATION: VITAL SIGNS: Weight 58.2 kg, blood pressure 166/63, pulse 54, respiratory rate 17, temperature 98.2, oxygen saturation 91% on 1 L nasal cannula. GENERAL: The patient is an 86-year-old female, who appears stated age, in no acute distress. HEENT: Head normocephalic. Does have evidence of trauma around the face with multiple areas of bruising. Pupils are equal, round, and reactive to light. NECK: Supple. There is no nuchal rigidity. No step-offs or deformities. CARDIOVASCULAR: Bradycardic. LUNGS: Clear to auscultation bilaterally. ABDOMEN: Soft. Right upper quadrant tenderness to palpation. There is no rebound, rigidity, or guarding. Positive bowel sounds. MUSCULOSKELETAL: The patient moves all 4 extremities. SKIN: Warm and dry. There are no rashes or lesions noted. LABORATORY DATA AND X-RAYS: Urinalysis shows 500 leukocyte esterase, positive nitrites, 15 protein, 25 blood, 20-50 wbc's, many bacteria, few WBC clumps, lactate normal. Old records from [facility] are reviewed. 03/25, CT scan of the head is negative, CT scan of the C-spine is negative, CT scan of the face is negative. Further laboratory analysis and imaging are pending. Please see Dr. Dominguez's dictation. IMPRESSION: 1. Acute right upper quadrant abdominal pain. 2. Acute complicated urinary tract infection. 3. Please see Dr. Dominguez's dictation. EMERGENCY DEPARTMENT COURSE: The patient was brought back to the examination room. Seen and evaluated by myself. IV is established. Laboratory analysis and imaging are obtained as described above. I have discussed the case with Dr. Dominguez at shift change. He will follow up on laboratory analysis and disposition per the results of the testing. Please see his dictation. DISPOSITION: The patient is dispositioned per Dr. Dominguez. INOCENCIO CONNOR DO PATIENT'S NAME: LUISA WRIGHT [facility] AGE: 86 Y [address] ROOM: [id number] [place] [id number] LOCATION: GPCU ADMIT DATE: 04/13/2017 ER/Outpatient Report DISCHARGE DATE: FAMILY PHYSICIAN: YOJANA ORDOÑEZ MD ATTENDING PHYSICIAN: RACHELL MOTTA/marely /[id number] d: 04/14/17708 t: 04/14/17812, OUTPATIENT REPORT
[2017-04-13 17:38] LABS: BILIRUBIN URINE NEGATIVE (NEGATIVE); BLOOD URINE 25 /UL (NEGATIVE); COLOR URINE YELLOW (YELLOW); GLUCOSE URINE NEGATIVE (NEGATIVE); KETONE URINE NEGATIVE (NEGATIVE); LEUKOCYTES URINE 500 /UL (NEGATIVE); NITRITE URINE POSITIVE (NEGATIVE); PROTEIN URINE 15 mg/dL (NEGATIVE); TURBIDITY URINE 1+ (CLEAR); UROBILINOGEN URINE NORMAL (NORMAL)
[2017-04-13 17:46] LABS: WBC URINE 20-50 #/HPF (NEGATIVE)
[2017-04-13 17:47] LABS: AMORPHOUS URINE 1+ (NEGATIVE); BACTERIA URINE MANY (NEGATIVE); GRANULAR CASTS URINE 0-2 #/LPF (NEGATIVE); WBC CLUMPS URINE FEW (NEGATIVE)
[2017-04-13 17:53] LABS: BASOPHIL % 0.5 %; HEMOGLOBIN 10.3 g/dL (10.0-15.0); IMMATURE GRANULOCYTE # 0.2 K/uL (0.0-0.3); IMMATURE GRANULOCYTE % 2.2 %; LYMPHOCYTE # 0.9 K/uL (0.8-4.0); MCH 31.7 pg (27.0-34.0); MCHC 31.2 gm/dL (32.0-36.5); MCV 101.5 fl (83.0-98.0); MONOCYTE # 0.8 K/uL (0.0-1.0); MONOCYTE % 9.3 %; MPV 11.4 fl (9.4-12.4); NEUTROPHIL # (ANC) 6.6 K/uL (1.8-7.8); NRBC % 0 /100WBC (0-0.00); PLATELET COUNT 273 K/uL (150-450); RBC 3.25 M/uL (3.00-5.00); RDW-CV 16.1 % (11.9-14.6); WBC 8.5 K/uL (4.0-11.0)
[2017-04-13 18:14] LABS: ALBUMIN 2.4 gm/dL (3.5-5.0); ALT 86 IU/L (12-78); AST 133 IU/L (10-40); BLOOD UREA NITROGEN 75 mg/dL (6-24); CALCIUM 8.4 mg/dL (8.5-10.5); CHLORIDE 97 mMol/L (96-110); CO2 28 mMol/L (22-32); CPK 73 IU/L (21-215); CREATININE 2.2 mg/dL (0.5-1.1); MAGNESIUM 3.7 mg/dL (1.8-2.6); SODIUM 136 mMol/L (135-145); TOTAL BILIRUBIN 2.4 mg/dL (0.0-1.5); TOTAL PROTEIN 6.3 g/dL (6.0-8.4)
[2017-04-13 18:34] LABS: ALK PHOS 1305 IU/L (33-138)
[2017-04-13 20:00] LABS: PTT 43 SECONDS (25-32)
[2017-04-13 20:01] LABS: INR - (THERAPEUTIC) 2.22 (0.92-1.07); PROTIME 23.5 SECONDS (9.8-11.4)
[2017-04-13 20:08] LABS: CPK 73 IU/L (21-215)
[2017-04-13] MEDS ORDERED: COUMADIN **IA1 MG PO (23:11)
[2017-04-13] MEDS ORDERED: COUMADIN ** 9/62 MG PO (23:13)
[2017-04-13] MEDS ORDERED: LASIX40 MG PO (23:14)
[2017-04-13] MEDS ORDERED: REQUIP0.25 MG PO ×2 (23:15→23:33)
[2017-04-13] MEDS ORDERED: CLARITIN10 MG PO (23:15)
[2017-04-13] MEDS ORDERED: ULTRAM50 MG PO ×2 (23:16→23:33)
[2017-04-13] MEDS ORDERED: HYDROCODON-ACE1 EACH PO (23:18)
[2017-04-13] MEDS ORDERED: TYLENOL325 MG PO (23:19)
[2017-04-13] MEDS ORDERED: ZYLOPRIM100 MG PO (23:20)
[2017-04-13] MEDS ORDERED: LEVOTHROID (S100 MCG PO (23:21)
[2017-04-13] MEDS ORDERED: DITROPAN5 MG PO (23:22)
[2017-04-13] MEDS ORDERED: ZAROXOLYN2.5 MG PO (23:22)
[2017-04-13] MEDS ORDERED: ADVAIR 250-501 EACH INH (23:23)
[2017-04-13] MEDS ORDERED: VITAMIN D-32000 UNI1 PO (23:23)
[2017-04-13] MEDS ORDERED: TENORMIN50 MG PO (23:25)
[2017-04-13] MEDS ORDERED: COLACE100 MG PO (23:25)
[2017-04-13] MEDS ORDERED: MAG-OX-400(241400 MG PO (23:27)
[2017-04-13] MEDS ORDERED: PLAQUENIL200 MG PO (23:28)
[2017-04-13] MEDS ORDERED: K-TAB ER10 MEQ PO (23:29)
[2017-04-13] MEDS ORDERED: DULCOLAX10 MG R (23:31)
[2017-04-13] MEDS ORDERED: MILK OF MA400 MG/5 M PO (23:32)
[2017-04-13] MEDS ORDERED: ALDACTONE25 MG PO (23:35)
--- NOTE | 2017-04-14 00:20 | NUR ---
ARRIVES TO FLOOR AT 2212. A&O BUT FORGETFUL AT TIMES. CHIEF COMPLAINT ABD PAIN. NO PAIN NOTED ON ADMIT. RECEIVED 5 OF MORPHINE FROM EMS AND 4 OF ZOFRAN FOR NAUSEA. YELLOWISH TINT TO SKIN. GENERALIZED BRUISING FROM FALL A FEW WEEKS BACK. R) HUMEROUS FX. ON IV NS @ 100ML/HR. INTERMITTENT ANITBIOTICS. MORRIS IN PLACE.
--- NOTE | 2017-04-14 03:26 | NUR ---
AxO throughout shift. No c/o of pain. IV in L) AC SL. Repositioned per request for stiffness. VSS on 1L home dose. NPO after midnight for ultrasound of abdomen. New cath placed at 0315 per MD. 625ml out of prev. cath dark yellow urine. R) arm in ortho device with skin protectors in place. Intermittent IV antibiotics and breathing tx for coarse lung sounds. Follow up: To con't with POC.
[2017-04-14 04:11] LABS: BASOPHIL % 0.4 %; HEMATOCRIT 28.8 % (30.0-46.0); HEMOGLOBIN 9.1 g/dL (10.0-15.0); IMMATURE GRANULOCYTE # 0.1 K/uL (0.0-0.3); IMMATURE GRANULOCYTE % 1.3 %; LYMPHOCYTE # 0.7 K/uL (0.8-4.0); LYMPHOCYTE % 9.3 %; MCH 31.5 pg (27.0-34.0); MCHC 31.6 gm/dL (32.0-36.5); MCV 99.7 fl (83.0-98.0); MONOCYTE # 0.6 K/uL (0.0-1.0); MONOCYTE % 8.9 %; NEUTROPHIL # (ANC) 5.7 K/uL (1.8-7.8); NEUTROPHIL % 80.1 %; NRBC % 0 /100WBC (0-0.00); PLATELET COUNT 255 K/uL (150-450); RBC 2.89 M/uL (3.00-5.00); WBC 7.1 K/uL (4.0-11.0)
[2017-04-14 04:22] LABS: INR - (THERAPEUTIC) 2.66 (0.92-1.07); PROTIME 28.2 SECONDS (9.8-11.4)
[2017-04-14 04:32] LABS: ANION GAP 10.4 (10.0-19.0); POTASSIUM 3.4 mMol/L (3.7-5.1); TOTAL PROTEIN 5.8 g/dL (6.0-8.4)
[2017-04-14 04:41] LABS: TOTAL BILIRUBIN 2.9 mg/dL (0.0-1.5)
--- NOTE | 2017-04-14 14:56 | NUR ---
Reviewed chart, pt sleeping so did not visit today. Resides at [facility]. [employer]products Extractor will follow and assist with dc planning.
--- NOTE | 2017-04-14 19:13 | NUR ---
Significant Event: ALERT & ORIENTED X3 TO QUESTIONS BUT MAKES CONFUSED STATEMENTS. RATES PAIN 10/10 WITH MINIMAL RELIEF AFTER 2MG MORPHINE, CHANGES LOCATION OF PAIN OFTEN, MOANS/GROANS. MORRIS WITH 800 URINE OUTPUT. 300 ML WATER WAS ONLY ORAL INTAKE TODAY. OK'D BY SPEECH THERAPY FOR CLEAR LIQUID DIET THEN NPO AFTER MIDNIGHT. Follow up: ERCP IN AM IF INR <1.5 (NO WRITTEN ORDERS YET) GIVE FFP IN INR>1.5
--- NOTE | 2017-04-15 05:19 | NUR ---
Significant events: Pt alert, forgetful and repetitive at times. Yells out constantly. Yells "help me" and when asked what she needs she says "nothing I just like saying that". Morphine given x2 for back pain. Up 2PA to chair at 0230 d/t restlessness. Pt on 1-3L/NC. Rosas in place, 400mL out. NPO since midnight for possible ERCP today. Pending INR, if INR <1.5 FFP to be transfused. R) arm immobilizer in place. Follow up: FFP pending INR result, possible ERCP today.
[2017-04-15 06:16] LABS: BASOPHIL % 0.4 %; HEMATOCRIT 29.9 % (30.0-46.0); HEMOGLOBIN 9.7 g/dL (10.0-15.0); IMMATURE GRANULOCYTE # 0.1 K/uL (0.0-0.3); IMMATURE GRANULOCYTE % 0.9 %; LYMPHOCYTE # 0.8 K/uL (0.8-4.0); LYMPHOCYTE % 9.9 %; MCH 31.5 pg (27.0-34.0); MCHC 32.4 gm/dL (32.0-36.5); MCV 97.1 fl (83.0-98.0); MONOCYTE # 0.7 K/uL (0.0-1.0); MONOCYTE % 8.5 %; MPV 11.3 fl (9.4-12.4); NEUTROPHIL # (ANC) 6.8 K/uL (1.8-7.8); NEUTROPHIL % 80.3 %; NRBC % 0 /100WBC (0-0.00); PLATELET COUNT 275 K/uL (150-450); RBC 3.08 M/uL (3.00-5.00); RDW-CV 16.1 % (11.9-14.6); WBC 8.5 K/uL (4.0-11.0)
[2017-04-15 06:34] LABS: INR - (THERAPEUTIC) 1.65 (0.92-1.07); PROTIME 17.4 SECONDS (9.8-11.4)
[2017-04-15 06:38] LABS: ALBUMIN 2.1 gm/dL (3.5-5.0); ANION GAP 14.1 (10.0-19.0); CALCIUM 8.1 mg/dL (8.5-10.5); POTASSIUM 3.1 mMol/L (3.7-5.1); TOTAL PROTEIN 6.1 g/dL (6.0-8.4)
[2017-04-15 06:41] LABS: TOTAL BILIRUBIN 4.5 mg/dL (0.0-1.5)
--- NOTE | 2017-04-15 13:11 | NUR ---
Reviewed chart and called Cathie at [facility] and left voicemail with update of pt condition today. Will likely be ready for dc back to them early next week and will update them first part of next week.
--- NOTE | 2017-04-15 13:51 | NUR ---
Speech Therapy Note: Attempted to see pt x2. Pt continues to be NPO while awaiting her procedures. Will reassess pt's swallow as able. Discussed with pt, pt's dtr, and pt's RN with good understanding. Blaire Dang M.A., CCC-CULTURAL HISTORIAN
[2017-04-15 14:03] LABS: INR - (THERAPEUTIC) 1.21 (0.92-1.07); PROTIME 12.7 SECONDS (9.8-11.4)
--- NOTE | 2017-04-15 19:30 | NUR ---
Significant Event: ALERT & ORIENTED, FORGETFUL. PRAYS ALOUD AND MAKES CONFUSED STATEMENTS AT TIMES. BED/CHAIR ALARM ON, NO ATTEMPTS TO GET OUT OF BED, USES CALL LIGHT AT TIMES. VSS, AFEBRILE, 1L O2. 2 UNITS FFP GIVEN FOR INR, POTASSIUM 60 MEQ OVER 6 HOURS, AND D5NS AT 75 ML/HR -ALL FOR CORRECTIONS BEFORE PROCEDURE. ERCP TODAY WITH SLUDGE/STONES REMOVED AND STENT PLACED. Follow up: ADVANCE DIET, SL IV WHEN TOLERATING PO
[2017-04-16 05:21] LABS: BASOPHIL % 0.4 %; HEMATOCRIT 25.9 % (30.0-46.0); HEMOGLOBIN 8.3 g/dL (10.0-15.0); IMMATURE GRANULOCYTE # 0.1 K/uL (0.0-0.3); IMMATURE GRANULOCYTE % 1.1 %; LYMPHOCYTE # 0.6 K/uL (0.8-4.0); LYMPHOCYTE % 9.8 %; MCH 31.7 pg (27.0-34.0); MCV 98.9 fl (83.0-98.0); MONOCYTE # 0.6 K/uL (0.0-1.0); MONOCYTE % 10.4 %; MPV 11.2 fl (9.4-12.4); NEUTROPHIL # (ANC) 4.4 K/uL (1.8-7.8); NEUTROPHIL % 78.3 %; NRBC % 0 /100WBC (0-0.00); PLATELET COUNT 247 K/uL (150-450); RBC 2.62 M/uL (3.00-5.00); RDW-CV 16.5 % (11.9-14.6); WBC 5.6 K/uL (4.0-11.0)
[2017-04-16 05:26] LABS: INR - (THERAPEUTIC) 1.08 (0.92-1.07); PROTIME 11.4 SECONDS (9.8-11.4)
--- NOTE | 2017-04-16 05:38 | NUR ---
Significant Event: A/0 X 3, VERY COOPERATIVE AND PLEASANT. SBP'S 100'S TO 140'S. HAS BEEN DILMA IN THE 50'S ALL EVENING. HAS EVEN DROPPED INTO UPPER 40'S AT TIMES. ATENOLOL HELD AT 2100. 02 WEENED DOWN TO 1L WITH SATS REMAINING IN UPPER 90'S. LUNGS REMIAN VERY COARSE, WITH WEAK COUGH. MORRIS INTACT WITH 500 UOP. HAD NO COMPLAINTS OF PAIN, REFUSED SCHEDULED TRAMADOL WITH HER HS MEDS. IMMOBILIZER/SLING REMAINS ON RIGHT ARM FOR FRACTURED RIGHT HUMERUS. Follow up:
[2017-04-16 05:44] LABS: ANION GAP 11.6 (10.0-19.0); CALCIUM 7.7 mg/dL (8.5-10.5); CREATININE 1.6 mg/dL (0.5-1.1); POTASSIUM 3.6 mMol/L (3.7-5.1)
[2017-04-16 05:54] LABS: MAGNESIUM 3.5 mg/dL (1.8-2.6)
--- NOTE | 2017-04-16 18:54 | NUR ---
SHE IS A VERY LIVELY CHARACTER. SHE BARELY ATE TODAY/FEW BITES OF HER SANDWHICH AND HALF A BAKED POTATO. HE IS VERY STUBBORN AND HAD TO WATCH HER SO SHE'D TAKE HER PILLS.
[2017-04-17 04:22] LABS: BASOPHIL % 0.6 %; HEMATOCRIT 27.4 % (30.0-46.0); HEMOGLOBIN 8.8 g/dL (10.0-15.0); IMMATURE GRANULOCYTE # 0.1 K/uL (0.0-0.3); IMMATURE GRANULOCYTE % 1.1 %; LYMPHOCYTE # 0.7 K/uL (0.8-4.0); LYMPHOCYTE % 13.6 %; MCH 31.5 pg (27.0-34.0); MCHC 32.1 gm/dL (32.0-36.5); MCV 98.2 fl (83.0-98.0); MONOCYTE # 0.6 K/uL (0.0-1.0); MONOCYTE % 10.4 %; MPV 11.3 fl (9.4-12.4); NEUTROPHIL % 74.3 %; NRBC % 0 /100WBC (0-0.00); PLATELET COUNT 252 K/uL (150-450); RBC 2.79 M/uL (3.00-5.00); RDW-CV 16.1 % (11.9-14.6); WBC 5.4 K/uL (4.0-11.0)
[2017-04-17 04:36] LABS: INR - (THERAPEUTIC) 1.02 (0.92-1.07); PROTIME 10.7 SECONDS (9.8-11.4)
[2017-04-17 04:47] LABS: ALBUMIN 2.1 gm/dL (3.5-5.0); CALCIUM 7.8 mg/dL (8.5-10.5); CREATININE 1.2 mg/dL (0.5-1.1); TOTAL PROTEIN 5.6 g/dL (6.0-8.4)
[2017-04-17 04:48] LABS: MAGNESIUM 3.2 mg/dL (1.8-2.6); TOTAL BILIRUBIN 1.7 mg/dL (0.0-1.5)
--- NOTE | 2017-04-17 05:26 | NUR ---
Significant Event: A/0 X 3, VERY PLEASANT AND COOPERATIVE. STILL DILMA IN 50'S. 60'S WHILE AWAKE. 02 AT 1L. ALL OTHER VSS, AFEBRILE. NPO SINCE MIDNIGHT FOR LAP VICTORINO THIS AM WITH DR. DUMONT. MORRIS 1050 UOP. LUNGS REMIAN COARSE. NO COMPLAINTS OF PAIN NO PAIN MEDS GIVEN. APPETITE REMAINS POOR. HAS RESTED WELL ALL EVENING Follow up:
--- NOTE | 2017-04-17 20:04 | NUR ---
Significant Event: Pt came from PACU at 1445. Pt brought to the floor moaning and crying out in pain. She was given 125mcg of fentanyl in PACU and 50 mg of Ultram. She was given morphine 1mg at 1510 and 1553. Pt finally was able to rest for approx 1 hour. She again began to holler out in pain. She was given morphine 2mg at 1806. Pt had a recent fall with a right humerus fx. Brace intact to that arm. Pt denied pain in arm. She has several bruises in various stages of healing. She has 4 sm incision (lap) sites that are closed with durabond, no dressings and no drainage. Bowel sounds are active. Pt has a urinary catheter in place with clear yellow urine.
--- NOTE | 2017-04-18 04:51 | NUR ---
Significant Event: PATIENT IS ALERT AND ORIENTED. LAP VICTORINO DONE ON 04/17. NOT TOLERATING PAIN VERY WELL. MORPHINE BEING GIVEN IV. PATIENT TAKES TRAMADOL TID SCHEDULED AT HOME. PARTIAL MED LIST LEFT FOR PHYSISIAN TO UPDATE. PATIENT SCREAMS OUT WHEN SHE WAKES UP. FOLLOWING MORPHINE, SHE IS QUIET AND RESTING WELL. ALARMS ON AT ALL TIME. TEMP AT 1800 WAS 100.3. NORCO ADMINISTERED. LAST TEMP. WAS 97.7. GENERALIZED BRUSING THROUGHOUT FROM FALL. BRACE TO RIGHT SHOULDER FOR HUMERUS FX. CHRONIC MORRIS TO DD. UOP OF 225. Follow up:
[2017-04-18 04:55] LABS: BASOPHIL # 0.1 K/uL (0.0-0.2); BASOPHIL % 0.4 %; HEMOGLOBIN 9.1 g/dL (10.0-15.0); IMMATURE GRANULOCYTE # 0.1 K/uL (0.0-0.3); LYMPHOCYTE # 0.9 K/uL (0.8-4.0); LYMPHOCYTE % 7.1 %; MCHC 32.5 gm/dL (32.0-36.5); MCV 98.6 fl (83.0-98.0); MONOCYTE # 0.7 K/uL (0.0-1.0); MPV 11.1 fl (9.4-12.4); NEUTROPHIL # (ANC) 10.4 K/uL (1.8-7.8); NEUTROPHIL % 85.5 %; NRBC % 0 /100WBC (0-0.00); PLATELET COUNT 260 K/uL (150-450); RBC 2.84 M/uL (3.00-5.00); RDW-CV 15.9 % (11.9-14.6); WBC 12.2 K/uL (4.0-11.0)
[2017-04-18 05:07] LABS: INR - (THERAPEUTIC) 1.02 (0.92-1.07); PROTIME 10.7 SECONDS (9.8-11.4)
[2017-04-18 05:19] LABS: ANION GAP 14.5 (10.0-19.0); CREATININE 1.3 mg/dL (0.5-1.1); POTASSIUM 4.5 mMol/L (3.7-5.1)
--- NOTE | 2017-04-18 14:08 | NUR ---
Attempted to meet with patient at 1000 but she was sleeping and there was not any family present. She lives at [facility]. Plan will be to return there on discharge. Will continue to follow and offer supports.
--- NOTE | 2017-04-18 14:57 | NUR ---
A-SCREENED D/T LOS S/P DELLA GLEASON ON 04/17 HT: 60 IN. WT: 64.5 KG. BMI: 27.7 LABS: NA 135, K+ 4.5, GLU 47, BUN 41, CRT1.3, ALB 2.1, LFT'S ELEVATED MEDS: VANCOMYCIN, ZOFRAN, VIT D, COALCE, SANCTURA, MAG-OX, MERREM, ULTRAM, NORCO DIET RX: DIET ADVANCED TO REGULAR THIS AM; PO INTAKE WAS 75-100%. EST NUTR NEED: 3837-8630 KCALS (25-30 KCALS/KG) 58-70 GM PROTEIN (1.0-1.2 GM/KG) D-AT NUTRITION RISK W/INADEQUATE ORAL INTAKE R/T ALTERED GI FXN AEB DELLA VICTORINO, C/O ABD PAIN, INTAKE RECORDS. I-START ENSURE ENLIVE BID TO PROVIDE ADDITIONAL NUTRIENTS M/E-GOAL: PO INTAKE >/=50% FOR DURATION OF ADMIT
--- NOTE | 2017-04-18 17:57 | NUR ---
Significant Event: ALERT & ORIENTED TO QUESTIONS BUT MAKES CONFUSED STATEMENTS ALOUD. VSS, AFEBRILE, DOWN TO 2L O2. PRODUCTIVE COUGH, CHANGED TO PO LEVAQUIN. 2 ASSIST PIVOT TO CHAIR, WEAK. GOOD ORAL INTAKE, SOFT DIET PER SPEECH THERAPY RECOMMENDATION. NO BM SINCE 8-7, GAVE MILK OF MAG AND SCHEUDLED COLACE. D50 GIVEN FOR LOW BLOOD SUGAR ON AM LABS. *SPOT CHECK AT 0300 AND GIVE BEDTIME SNACK. Follow up: MORRIS OUT AT 11:42, CALL MD IF NO VOID IN 8 HOURS.
--- NOTE | 2017-04-19 04:26 | NUR ---
Significant Event: Sleeping on and off this shift. Afebrile, all other VSS. A&O x3, forgetful at times. Up to chair and returned to bed with stand/pivot and 2 assist. Bladder scanned at 1999 for no void since matthews removal, 46ml result. At 2244 MD notified to no void(bladder scan at this time 146ml), 25mg of 25% IV Albumin ordered. Bladder scanned at 021 for no void, 234ml noted on scan. Patient was finally incontinent of urine x1, small amount at 0330. Drinking well. Only bites of supper. PIV patent and saline locked. Accucheck at 0300: 72. Sling to R) arm remains in place. Cooperative with cares. Follow up:
[2017-04-19 04:30] LABS: BASOPHIL # 0.1 K/uL (0.0-0.2); BASOPHIL % 0.5 %; HEMATOCRIT 26.3 % (30.0-46.0); HEMOGLOBIN 8.5 g/dL (10.0-15.0); IMMATURE GRANULOCYTE # 0.2 K/uL (0.0-0.3); IMMATURE GRANULOCYTE % 1.2 %; LYMPHOCYTE % 7.4 %; MCH 31.7 pg (27.0-34.0); MCHC 32.3 gm/dL (32.0-36.5); MCV 98.1 fl (83.0-98.0); MONOCYTE % 7.7 %; MPV 11.3 fl (9.4-12.4); NEUTROPHIL # (ANC) 10.8 K/uL (1.8-7.8); NEUTROPHIL % 83.2 %; NRBC % 0 /100WBC (0-0.00); PLATELET COUNT 256 K/uL (150-450); RBC 2.68 M/uL (3.00-5.00); RDW-CV 16.1 % (11.9-14.6)
[2017-04-19 04:38] LABS: INR - (THERAPEUTIC) 1.12 (0.92-1.07); PROTIME 11.8 SECONDS (9.8-11.4)
[2017-04-19 04:46] LABS: ANION GAP 11.1 (10.0-19.0); CALCIUM 8.1 mg/dL (8.5-10.5); CREATININE 1.5 mg/dL (0.5-1.1); POTASSIUM 4.1 mMol/L (3.7-5.1)
--- NOTE | 2017-04-19 18:56 | NUR ---
D: PATIENT TO FLOOR FROM PACU AT 1200. PATIENT VITAL SIGNS STABLE PATIENT BLOOD PRESSURE ON LOW END 99/50 PRIOR TO COREG DOSAGE HELD. PATIENT UP TO CHAIR WITH 2 ASSIST TO EAT SUPPER. DRESSINGS TO ABDOMEN (4STAB) WITH SMALL TO MODERATE SEROSANG DRAINAGE.
--- NOTE | 2017-04-19 18:58 | NUR ---
D: PATIENT VITAL SIGNS STABLE PATIENT AFEBRILE. PATIENT IS EATING BITES OF MEALS WITH MUCH ENCOURAGEMENT. PATIENT CONTINUED TO NOT VOID THIS AM BLADDER SCAN AT 0800 500 AND PATIENT STRAIGHT CATHED FOR 450ML. PATIENT DID NOT FEEL THE URGE TO VOID UNTIL 1630; BLADDER SCANNED PATIENT FOR 432ML AND NOTIFIED CHARITY GREY AT 1730. TO WAIT ANOTHER 2 HOURS AND ENCOURAGE PATIENT TO TRY TO VOID, OBTAIN A POST RESIDUAL BLADDER SCAN AND CALL DR BACH IF NO VOID.
--- NOTE | 2017-04-20 02:53 | NUR ---
SIGNIFICANT EVENT: Pt alert, oriented early in shift - confused on waking in middle of night. Awoke at 0130 and stated that she needed to call her oldest son because the other son had been in an accident. 2PA, stand and pivot. Bladder scan at 1927 showed 273, Mod Incont. void at approx 2235 with post residual of 178. 1 mod void so far this shift. Regular diet. Alarms! Pleasant and cooperative with cares.
[2017-04-20 05:57] LABS: BASOPHIL % 0.4 %; HEMATOCRIT 25.2 % (30.0-46.0); HEMOGLOBIN 8.2 g/dL (10.0-15.0); IMMATURE GRANULOCYTE # 0.2 K/uL (0.0-0.3); IMMATURE GRANULOCYTE % 1.9 %; LYMPHOCYTE # 0.9 K/uL (0.8-4.0); LYMPHOCYTE % 8.1 %; MCH 31.8 pg (27.0-34.0); MCHC 32.5 gm/dL (32.0-36.5); MCV 97.7 fl (83.0-98.0); MONOCYTE # 0.7 K/uL (0.0-1.0); MONOCYTE % 6.8 %; MPV 11.3 fl (9.4-12.4); NEUTROPHIL # (ANC) 8.7 K/uL (1.8-7.8); NEUTROPHIL % 82.8 %; NRBC % 0 /100WBC (0-0.00); PLATELET COUNT 257 K/uL (150-450); RBC 2.58 M/uL (3.00-5.00); RDW-CV 15.8 % (11.9-14.6); WBC 10.5 K/uL (4.0-11.0)
[2017-04-20 06:09] LABS: INR - (THERAPEUTIC) 1.71 (0.92-1.07); PROTIME 18.1 SECONDS (9.8-11.4)
[2017-04-20 06:10] LABS: ANION GAP 10.8 (10.0-19.0); CALCIUM 8.2 mg/dL (8.5-10.5); CREATININE 1.2 mg/dL (0.5-1.1); POTASSIUM 3.8 mMol/L (3.7-5.1)
--- NOTE | 2017-04-20 16:24 | NUR ---
Significant event: Patient is alert and oriented, but forgetful and will occasionally make confused statements. IV to left, saline locked. Rosas placed at 1055 after bladder scan of 809ml. Did have a large BM this morning. Is on regular diet, only takes bites. Encouraged to drink ensure. Family in to visit today. Up in chair with PT. Stand and pivot, 2 assist. Was nauseous this morning and refused 0900 meds. Did give Zofran with relief. Did take other meds today, whole. Is on 2liters of O2. Cooperative with cares.
--- NOTE | 2017-04-20 16:45 | NUR ---
Received referral from regarding plan for transfer to [facility] tomorrow. Spoke with Cathie at [facility] and updated her. She said to call in the a.m. to set up transfer time. Spoke with patient and she tells me she gets to go back to [facility] tomorrow. Will follow.
--- NOTE | 2017-04-21 04:32 | NUR ---
Patient is alert and oriented but can be confused at times. 2 assist, stand and pivot only. Has L) forearm IV that is saline locked. Rosas is patent with 500ml out. 2 BMs this shift. 1L of O2. R) arm is in a sling from a previous fall and fracture of the humerus. Repositioned every couple of hours, did complain of some mild back pain, her 2200 dose of tylenol relieved the pain. Weight was 64.1kg standing and spot check of BS was 73.
[2017-04-21 04:46] LABS: INR - (THERAPEUTIC) 2.86 (0.92-1.07); PROTIME 30.3 SECONDS (9.8-11.4)
--- NOTE | 2017-04-21 14:28 | NUR ---
D: Patient vital signs stable patient does have hypertension. Patient up to chair x 2 with max 2 assist to eat meals and have complete bath. Patient continues to have bruising to face, orly arms, chest, orly legs. Incisions on abdomen continue to be approximated with durabond. Patient bowels are moving x 2 loose in consistency but went multiple days with out a bowel movement. Patient is alert orientated but occassionally forgetful.
--- NOTE | 2017-04-21 14:43 | NUR ---
Reviewed patient's chart and she will discharge to [facility] today. 0805 I placed a call to Cathie at [facility] to schedule a discharge time. She was going to call me back once she spoke to the specimen transporter. Phone call back from Cathie at 0945 and she states they will pick patient up at 1445 today. I shared this information with Kristie, Charge Nurse on MSU and Enzo Tom APRN following patient. At 1155 I was asked to talk to patient's daughter who was in the room with her. I went in and her daughter had a lot of questions regarding patient returning to [facility] with the matthews and shouldn't we try to wean her from the matthews. I shared with her that these are questions to be addressed by Dr. Gasca, urology, Dr. Omalley, Hospitalist or even patient's nurse Vita. I did share these questions with Vita and Dr. Omalley. Dr. Omalley went in to talk to daughter. She also had concerns about not being told that patient was discharging today. I apologized to her and informed her that I was at a conference yesterday, but the CM that followed in my absence did tell me that she did not get the family called. I apologized for the delay in my contacting her as I was waiting for the transfer time and I explained that I had more urgent matters I was tending to this morning. I did call Cathie at [facility] per daughter's request and informed her that daughter would like staff to assist or feed patient her meals. Cathie voiced her understanding and did not think this will be a concern. Provided nurse Gorman with the nurse to nurse number for her to call report to.
[2017-04-22] MEDS ORDERED: FLOMAX0.4 MG PO (18:12)
[2017-04-22] MEDS ORDERED: MUCINEX600 MG PO (18:14)
[2017-04-22] MEDS ORDERED: LACTINEX (FLORA1 TAB PO (18:16)
[2017-04-22] MEDS ORDERED: TYLENOL EXTRA500 MG PO (18:17)
[2017-04-22] MEDS ORDERED: OXYGEN M-15 INH (18:19)
[2017-04-22] MEDS ORDERED: DUONEB INH ×2 (18:19→18:20)
== END 2017-04-21 14:00 | DRG 417 ==
LOC: GMED 17:11 → GPCU 20:57 → GMSU 20:57
PROVIDERS: Emergency Medicine; Family Medicine; Internal Medicine; Nurse Practitioner Family; ADMIT Internal Medicine
PROC: 30233K1 Transfusion of Nonautologous Frozen Plasma into Peripheral Vein, Percutaneous Approach (ICD-10-PCS; 2017-04-15)
PROC: 0FT44ZZ Resection of Gallbladder, Percutaneous Endoscopic Approach (ICD-10-PCS; principal; 2017-04-17)
PROC: BF13YZZ Fluoroscopy of Gallbladder and Bile Ducts using Other Contrast (ICD-10-PCS; principal; 2017-04-17)
PROC: 0F798DZ Dilation of Common Bile Duct with Intraluminal Device, Via Natural or Artificial Opening Endoscopic (ICD-10-PCS; principal; 2017-04-17)
DX: K80.46 Calculus of bile duct with acute and chronic cholecystitis without obstruction (principal); J18.9 Pneumonia, unspecified organism; J96.21 Acute and chronic respiratory failure with hypoxia; N17.9 Acute kidney failure, unspecified; G93.40 Encephalopathy, unspecified; E44.0 Moderate protein-calorie malnutrition; N39.0 Urinary tract infection, site not specified; I50.32 Chronic diastolic (congestive) heart failure; I48.0 Paroxysmal atrial fibrillation; J44.9 Chronic obstructive pulmonary disease, unspecified; N18.3 Chronic kidney disease, stage 3 (moderate); N28.9 Disorder of kidney and ureter, unspecified; N83.209 Unspecified ovarian cyst, unspecified side; F17.200 Nicotine dependence, unspecified, uncomplicated; B95.61 Methicillin susceptible Staphylococcus aureus infection as the cause of diseases classified elsewhere; B96.20 Unspecified Escherichia coli [E. coli] as the cause of diseases classified elsewhere; Z87.81 Personal history of (healed) traumatic fracture; Y95 Nosocomial condition; M06.9 Rheumatoid arthritis, unspecified; E03.9 Hypothyroidism, unspecified; I73.9 Peripheral vascular disease, unspecified; Z79.01 Long term (current) use of anticoagulants; R33.9 Retention of urine, unspecified
CPT/HCPCS: C1769; C9399; J1650; J1956; J2185; J2270; J2405; J3010; J3370; J3480; J7030; J7040; J7042; J7050; J7120; P9017; P9047

== ENCOUNTER → 2017-04-13 | Outpatient (CLI) | payer MEDICARE, OTHER, MEDICAID | END | disposition disaster alternative care site (69) | LOC: GAMB 16:49 | DX: R10.84 Generalized abdominal pain (principal); M54.9 Dorsalgia, unspecified; E03.9 Hypothyroidism, unspecified; E78.5 Hyperlipidemia, unspecified; J44.9 Chronic obstructive pulmonary disease, unspecified; I10 Essential (primary) hypertension; M19.90 Unspecified osteoarthritis, unspecified site; M10.9 Gout, unspecified; R07.9 Chest pain, unspecified; R11.2 Nausea with vomiting, unspecified; Z88.0 Allergy status to penicillin; Z88.6 Allergy status to analgesic agent; Z88.7 Allergy status to serum and vaccine | CPT/HCPCS: A0425; A0427; J2270; J2405; J7030 ==

== ENCOUNTER → 2017-04-22 | Outpatient (CLI) | payer MEDICARE, OTHER, MEDICAID ==
[~2017-04-22] VITALS: Ht 152.4 cm; Wt 67.2 kg
== END | disposition disaster alternative care site (69) ==
LOC: GAMB 07:49
DX: J18.9 Pneumonia, unspecified organism (principal); J44.9 Chronic obstructive pulmonary disease, unspecified; E03.9 Hypothyroidism, unspecified; M19.90 Unspecified osteoarthritis, unspecified site; M10.9 Gout, unspecified; E78.5 Hyperlipidemia, unspecified; I10 Essential (primary) hypertension; Z79.899 Other long term (current) drug therapy; R06.02 Shortness of breath; Z90.49 Acquired absence of other specified parts of digestive tract; Z88.0 Allergy status to penicillin; Z88.6 Allergy status to analgesic agent; Z88.7 Allergy status to serum and vaccine; Z88.8 Allergy status to other drugs, medicaments and biological substances
CPT/HCPCS: A0422; A0425; A0427; J7030